=== PATIENT | female | born 1975 | race Two or more races ===

== ENCOUNTER → 2024-03-12 | Outpatient (CLI) | payer OTHER ==
[2024-03-12 06:47] LABS: Urine Bacteria FEW /hpf (None Seen); Urine Blood TRACE /uL (Negative); Urine Clarity Turbid (Clear); Urine Color Light-Yellow (Yellow); Urine Protein, UAD TRACE (Negative); Urine Specific Gravity 1.017 (1.001-1.035); Urine Urobilinogen Normal (Negative); Urine WBC 5 /hpf (0 - 5)
[2024-03-12 06:58] LABS: Basophils # (auto) 0.1 10 ^3/uL (0-0.2); Eosinophils # (auto) 0.4 10 ^3/uL (0-0.8); Lymphocytes # (auto) 1.5 10 ^3/uL (0.4-5.4); White Blood Cell 5.4 10^3/uL (4.4-10.8)
[2024-03-12 07:00] LABS: Basophils % (auto) 1.2 % (0.0-2.0); Eosinophils % (auto) 6.9 % (0.0-7.0); Hematocrit 22.4 % (36.0-46.0); Lymphocytes % (auto) 27.1 % (10.0-50.0); Mean Corpuscular Hemoglobin 18.6 pg (28.0-32.0); Mean Corpuscular Hgb Conc. 28.6 g/dL (32.0-36.0); Mean Corpuscular Volume 64.9 fL (80.0-100.0); Monocytes # (auto) 0.5 10 ^3/uL (0-1.3); Neutrophils % (auto) 55.8 % (37.0-80.0); Red Blood Cells 3.45 10^6/uL (4.0-5.20)
[2024-03-12 07:13] LABS: Alanine Aminotransferase 17 U/L (7-40); Albumin 4.4 g/dL (3.2-4.8); Alkaline Phosphatase 65 U/L (46-116); Anion Gap 5 (5-15); Aspartate Aminotransferase 14 U/L (13-40); BUN/Creatinine Ratio 10.3 (10.0-20.0); Blood Urea Nitrogen 8 mg/dL (9-23); Calcium 9.3 mg/dL (8.7-10.4); Carbon Dioxide 26 mmol/L (20-30); Chloride 108 mmol/L (98-107); Cholesterol 130 mg/dL (< 200); Glucose 100 mg/dL (74-106); HDL Cholesterol 42 mg/dL (40-59); LDL Cholesterol 77 mg/dL (< 100); Potassium 4.1 mmol/L (3.5-5.1); Sodium 139 mmol/L (136-145); Triglycerides 109 mg/dL (< 150)
[2024-03-12 07:14] LABS: Bilirubin, Total 0.4 mg/dL (0.2-1.0); Total Protein 6.6 g/dL (5.7-8.2)
[2024-03-12 07:15] LABS: Folate (Folic Acid) 10.49 ng/mL (>5.38)
[2024-03-12 09:27] LABS: Anisocytosis Slight; Hemoglobin 6.4 g/dL (12.2-16.2); Hypochromia Moderate; Platelet Estimate Adequate; Red Cell Distribution Width 21.1 % (11.8-14.3)
== END | disposition home or self-care (01) ==
LOC: LAB 06:10
PROVIDERS: ATTEND Family Medicine
DX: Z12.31 Encounter for screening mammogram for malignant neoplasm of breast (principal); Z12.11 Encounter for screening for malignant neoplasm of colon; Z12.4 Encounter for screening for malignant neoplasm of cervix; D22.9 Melanocytic nevi, unspecified; Z80.0 Family history of malignant neoplasm of digestive organs
CPT/HCPCS: 36415; 80053; 80061; 81001; 82306; 82607; 82746; 83036; 84403; 84443; 85025

== ENCOUNTER 2024-03-21 07:31 | Inpatient (IN) | payer OTHER ==
[~2024-03-21] VITALS: Ht 172.7 cm; Wt 110.4 kg
[2024-03-21] VITALS (7 sets, daily range): BP systolic 126–161; BP diastolic 67–103; PULSE 84–101; RESP 6–20; TEMP 98.3–98.5; O2SAT 99–100
[2024-03-21 08:05] LABS: Basophils % (auto) 0.6 % (0.0-2.0); Eosinophils # (auto) 0.4 10 ^3/uL (0-0.8); Lymphocytes # (auto) 1.6 10 ^3/uL (0.4-5.4); Monocytes # (auto) 0.7 10 ^3/uL (0-1.3); Monocytes % (auto) 8.6 % (0.0-12.0)
[2024-03-21 08:07] LABS: Basophils # (auto) 0 10 ^3/uL (0-0.2); Eosinophils % (auto) 4.4 % (0.0-7.0); Hematocrit 23.9 % (36.0-46.0); Lymphocytes % (auto) 19.3 % (10.0-50.0); Mean Corpuscular Hemoglobin 18.5 pg (28.0-32.0); Mean Corpuscular Hgb Conc. 27.9 g/dL (32.0-36.0); Mean Corpuscular Volume 66.2 fL (80.0-100.0); Neutrophils # (auto) 5.7 10 ^3/uL (1.6-8.6); Neutrophils % (auto) 67.1 % (37.0-80.0); Platelet Count (auto) 328 10^3/uL (140-450); Red Blood Cells 3.61 10^6/uL (4.0-5.20); White Blood Cell 8.5 10^3/uL (4.4-10.8)
[2024-03-21 08:13] LABS: Red Cell Distribution Width 21.3 % (11.8-14.3)
[2024-03-21 08:15] LABS: Hemoglobin 6.7 g/dL (12.2-16.2)
[2024-03-21 08:28] LABS: Anisocytosis Moderate
[2024-03-21 08:29] LABS: Hypochromia Marked; Platelet Estimate Adequate; Polychromasia Slight; Tear Drop Cells FEW
[2024-03-21 08:30] LABS: Alanine Aminotransferase 19 U/L (7-40); Albumin 4.5 g/dL (3.2-4.8); Alkaline Phosphatase 66 U/L (46-116); Anion Gap 8 (5-15); Aspartate Aminotransferase 12 U/L (13-40); Bilirubin, Total 0.5 mg/dL (0.2-1.0); Blood Urea Nitrogen 8 mg/dL (9-23); Calcium 9.3 mg/dL (8.7-10.4); Carbon Dioxide 22 mmol/L (20-30); Chloride 107 mmol/L (98-107); Glucose 108 mg/dL (74-106); Potassium 3.5 mmol/L (3.5-5.1); Sodium 137 mmol/L (136-145)
[2024-03-21 12:27] LABS: Urine Bacteria MOD /hpf (None Seen); Urine Blood Negative /uL (Negative); Urine Protein, UAD Negative (Negative); Urine Specific Gravity 1.006 (1.001-1.035); Urine Urobilinogen Normal (Negative); Urine WBC 4 /hpf (0 - 5)
[2024-03-21 12:28] LABS: Urine Clarity Hazy (Clear); Urine Color Light-Yellow (Yellow)
[2024-03-21] MEDS ORDERED: ONDANSETRON HCL 4 MG/2 ML VIAL IV PRN (13:45)
[2024-03-21] MEDS ORDERED: ACETAMINOPHEN 325 MG TAB PO PRN (13:45)
[2024-03-21] MEDS ORDERED: DOCUSATE SOD 100 MG CAP PO PRN (13:45)
[2024-03-21] MEDS ORDERED: HYDROcodone-ACET 5/325MG TAB PO PRN (13:45)
[2024-03-21] MEDS: SODIUM CHLOR 0.9% PF (SALINE LOCK) 10ML VIAL/SYR IV SCH (14:39)
== END 2024-03-21 17:59 | disposition left against medical advice (07) | DRG 812 ==
LOC: ER 07:31 → OVERFLOW 13:34
PROVIDERS: ADMIT Internal Medicine; ATTEND Internal Medicine
PROC: 30233N1 Transfusion of Nonautologous Red Blood Cells into Peripheral Vein, Percutaneous Approach (ICD-10-PCS; principal; 2024-03-21)
DX: D50.9 Iron deficiency anemia, unspecified (principal); K21.9 Gastro-esophageal reflux disease without esophagitis; N92.0 Excessive and frequent menstruation with regular cycle; Z53.29 Procedure and treatment not carried out because of patient's decision for other reasons; N95.9 Unspecified menopausal and perimenopausal disorder
CPT/HCPCS: 36415; 80053; 81001; 82728; 83540; 83550; 85025; 86850; 86900; 86901; 86922; 93005; 96374; 99291; G0378

== ENCOUNTER → 2024-03-24 | Outpatient (CLI) | payer OTHER ==
[2024-03-24 07:31] LABS: % Iron Saturation 6.8 % (15-50)
[2024-03-24 07:57] LABS: Basophils # (auto) 0.1 10 ^3/uL (0-0.2); Eosinophils # (auto) 0.4 10 ^3/uL (0-0.8); Eosinophils % (auto) 5.1 % (0.0-7.0); Hematocrit 25.3 % (36.0-46.0); Hemoglobin 7.2 g/dL (12.2-16.2); Lymphocytes # (auto) 1.8 10 ^3/uL (0.4-5.4); Mean Corpuscular Hemoglobin 19.3 pg (28.0-32.0); Mean Corpuscular Hgb Conc. 28.4 g/dL (32.0-36.0); Mean Corpuscular Volume 67.9 fL (80.0-100.0); Monocytes # (auto) 0.7 10 ^3/uL (0-1.3); Monocytes % (auto) 9.5 % (0.0-12.0); Neutrophils # (auto) 4.1 10 ^3/uL (1.6-8.6); Neutrophils % (auto) 58.4 % (37.0-80.0); Nucleated Red Blood Cells % 0.2 %; Platelet Count (auto) 278 10^3/uL (140-450); Red Blood Cells 3.72 10^6/uL (4.0-5.20)
[2024-03-24 07:58] LABS: Red Cell Distribution Width 21.9 % (11.8-14.3)
[2024-03-24 09:13] LABS: Platelet Estimate Adequate
[2024-03-24 09:15] LABS: Anisocytosis Slight; Hypochromia Marked; Ovalocytes MODERATE
== END | disposition home or self-care (01) ==
LOC: LAB 06:14
PROVIDERS: ATTEND Family Medicine
DX: R79.9 Abnormal finding of blood chemistry, unspecified (principal); D50.9 Iron deficiency anemia, unspecified
CPT/HCPCS: 36415; 83540; 83550; 85025

== ENCOUNTER → 2024-04-28 | Outpatient (CLI) | payer OTHER ==
[2024-04-28 16:20] LABS: Basophils # (auto) 0.1 10 ^3/uL (0-0.2); Hemoglobin 10.6 g/dL (12.2-16.2); Lymphocytes # (auto) 2.2 10 ^3/uL (0.4-5.4); Lymphocytes % (auto) 28.1 % (10.0-50.0); Mean Corpuscular Hgb Conc. 31.1 g/dL (32.0-36.0); Neutrophils # (auto) 4.5 10 ^3/uL (1.6-8.6); Red Cell Distribution Width 29.2 % (11.8-14.3); White Blood Cell 7.9 10^3/uL (4.4-10.8)
[2024-04-28 16:21] LABS: Eosinophils # (auto) 0.5 10 ^3/uL (0-0.8); Hematocrit 34.1 % (36.0-46.0); Mean Corpuscular Hemoglobin 24.2 pg (28.0-32.0); Mean Corpuscular Volume 77.8 fL (80.0-100.0); Monocytes # (auto) 0.6 10 ^3/uL (0-1.3); Monocytes % (auto) 8.1 % (0.0-12.0); Neutrophils % (auto) 56.8 % (37.0-80.0); Platelet Count (auto) 297 10^3/uL (140-450); Red Blood Cells 4.38 10^6/uL (4.0-5.20)
[2024-04-28 16:47] LABS: Follicle Stimulating Hormone 8.31 IU/L (SEE BELOW)
[2024-04-28 16:48] LABS: Leuteinizing Hormone 6.2 IU/L
[2024-04-28 17:49] LABS: Anisocytosis Slight; Hypochromia Slight; Platelet Estimate Adequate
[2024-04-29 08:06] LABS: Cancer Antigen (CA) 125 17.1 U/mL (0.0-38.1)
== END | disposition home or self-care (01) ==
LOC: LAB 15:53
PROVIDERS: ATTEND Obstetrics & Gynecology
DX: R10.2 Pelvic and perineal pain (principal); N93.9 Abnormal uterine and vaginal bleeding, unspecified; Z80.41 Family history of malignant neoplasm of ovary
CPT/HCPCS: 36415; 82670; 83001; 83002; 84403; 84443; 85025; 86304

== ENCOUNTER → 2024-05-06 | Outpatient (CLI) | payer OTHER | END | disposition home or self-care (01) | LOC: LAB 14:56 | PROVIDERS: ATTEND Radiology Diagnostic Radiology | DX: I10 Essential (primary) hypertension (principal) ==

== ENCOUNTER 2024-05-29 06:10 | Day surgery (SDC) | payer OTHER ==
[2024-05-26 10:20] LABS: Urine Bacteria FEW /hpf (None Seen); Urine Blood Negative /uL (Negative); Urine Clarity Clear (Clear); Urine Color Light-Yellow (Yellow); Urine Protein, UAD Negative (Negative); Urine Specific Gravity 1.009 (1.001-1.035); Urine Urobilinogen Normal (Negative); Urine WBC 3 /hpf (0 - 5)
[2024-05-26 10:22] LABS: Basophils # (auto) 0.1 10 ^3/uL (0-0.2); Basophils % (auto) 0.8 % (0.0-2.0); Eosinophils # (auto) 0.4 10 ^3/uL (0-0.8); Eosinophils % (auto) 5.1 % (0.0-7.0); Hematocrit 40.3 % (36.0-46.0); Hemoglobin 13.1 g/dL (12.2-16.2); Lymphocytes # (auto) 1.6 10 ^3/uL (0.4-5.4); Lymphocytes % (auto) 23.2 % (10.0-50.0); Mean Corpuscular Hemoglobin 27.7 pg (28.0-32.0); Mean Corpuscular Hgb Conc. 32.4 g/dL (32.0-36.0); Mean Corpuscular Volume 85.4 fL (80.0-100.0); Monocytes # (auto) 0.6 10 ^3/uL (0-1.3); Monocytes % (auto) 8.7 % (0.0-12.0); Neutrophils # (auto) 4.4 10 ^3/uL (1.6-8.6); Neutrophils % (auto) 62.2 % (37.0-80.0); Nucleated Red Blood Cells % 0.1 %; Platelet Count (auto) 249 10^3/uL (140-450); Red Blood Cells 4.72 10^6/uL (4.0-5.20); Red Cell Distribution Width 22.9 % (11.8-14.3); White Blood Cell 7.1 10^3/uL (4.4-10.8)
[2024-05-26 10:30] LABS: INR 1.01 (0.9-1.15); Partial Thromboplastin Time 25.9 SEC (24.5-34.5); Prothrombin Time 10.7 sec (9.3-11.8)
[2024-05-26 11:07] LABS: Alanine Aminotransferase 40 U/L (7-40); Albumin 4.6 g/dL (3.2-4.8); Alkaline Phosphatase 65 U/L (46-116); Anion Gap 8 (5-15); Aspartate Aminotransferase 32 U/L (13-40); BUN/Creatinine Ratio 9.6 (10.0-20.0); Blood Urea Nitrogen 8 mg/dL (9-23); Calcium 9.9 mg/dL (8.7-10.4); Carbon Dioxide 23 mmol/L (20-31); Chloride 109 mmol/L (98-107); Glucose 94 mg/dL (74-106); Potassium 3.9 mmol/L (3.5-5.1); Sodium 140 mmol/L (136-145)
[2024-05-26 11:08] LABS: Bilirubin, Total 0.3 mg/dL (0.2-1.0); Total Protein 7.2 g/dL (5.7-8.2)
[2024-05-26 11:11] LABS: Ovalocytes FEW; Tear Drop Cells FEW
[2024-05-26 11:12] LABS: Anisocytosis Slight; Platelet Estimate Adequate
--- NOTE | 2024-05-26 23:18 | DVHHP ---
ADMIT DATE: 05/29/2024 CHIEF COMPLAINT: Heavy menses. HISTORY OF PRESENT ILLNESS: The patient is a 48-year-old 0, para 0, admitted for D and C, hysteroscopy, and endometrial ablation. The patient has had history of heavy bleeding. Hemoglobin of 6 for which she received transfusion. She then had Depo-Provera which she did well on; however, was diagnosed with breast cancer. She is awaiting treatment evaluation and management of breast cancer. Meanwhile, decision was made to proceed with ablation in order to avoid having another hemorrhage and blood transfusion, while the patient is awaiting for management and treatment of breast cancer. PAST MEDICAL HISTORY: Blood transfusion. PAST SURGICAL HISTORY: None. SOCIAL HISTORY: None. FAMILY HISTORY: Positive for ovarian cancer. REVIEW OF SYSTEMS: Consistent with HPI. ALLERGIES: No known drug allergies. PHYSICAL EXAMINATION: VITAL SIGNS: Stable, afebrile. HEENT: Within normal limits. CARDIOVASCULAR: Regular rate and rhythm. LUNGS: Clear to auscultation. BREASTS: Symmetrical and right breast mass. ABDOMEN: Obese. PELVIC: External genitalia within normal limits. Vagina normal. Cervix grossly normal-appearing, stenotic. Uterus 14-week size. Adnexa nonpalpable. EXTREMITIES: No clubbing, cyanosis or edema. IMPRESSION: * Abnormal uterine bleeding, menorrhagia. * Anemia. * Morbid obesity. * Breast cancer. Current breast cancer per history. PLAN: D and C, hysteroscopy, endometrial ablation. Informed consent obtained. Risks, complication of surgery including infection, bleeding, perforation of uterus, risk of anesthesia, failure rate discussed with the patient. Options reviewed. All questions answered. The patient fully understands. She wishes to proceed with planned procedure. DO DAVID Kaminski TID: [id number] RECEIPT: [id number]
[~2024-05-29] VITALS: Ht 172.7 cm; Wt 64.9 kg
[~2024-05-29 06:10] MED LIST: FAMO20TA10 PO; FERR325T24 PO; TIRZ2.5I2 SC
[2024-05-29] MEDS ORDERED: ceFAZolin 2 GM/D5W100ml 100 ML IV ONE (07:51)
[2024-05-29] MEDS ORDERED: fentaNYL CITRATE 100 MCG/2 ML VL ONE (09:17)
[2024-05-29] MEDS ORDERED: PROPOFOL 10 MG/ML 20 ML IV ONE (09:18)
[2024-05-29] MEDS ORDERED: ONDANSETRON HCL 4 MG/2 ML VIAL ONE (10:27)
[2024-05-29] MEDS ORDERED: DexAMETHasone SOD PHOS 10MG/1ML VIAL INJ ONE (10:27)
[2024-05-29] MEDS ORDERED: MEPERIDINE HCL (50 MG/ML) 1 ML VIAL ONE ×2 (10:28→10:55)
[2024-05-29 11:07] VITALS: TEMP 98.7; O2SAT 100
[2024-05-29] MEDS ORDERED: ZOFR4T PO (11:09)
[2024-05-29] MEDS ORDERED: IBUP-1456 PO (11:09)
[2024-05-29] MEDS ORDERED: ACETAMINOPHEN IV 1000 MG/100ML (10MG/ML) IV PRN (11:15)
[2024-05-29] MEDS ORDERED: ONDANSETRON HCL 4 MG/2 ML VIAL IV ONE (11:15)
[2024-05-29] MEDS ORDERED: MEPERIDINE HCL (25 MG/ML) 1ML VIAL IV PRN (11:15)
[2024-05-29] MEDS ORDERED: HYDROmorphone HCL 2 MG/ML VL/or syr IV PRN (11:15)
[2024-05-29] MEDS ORDERED: LACTATED RINGER'S 1,000 ML IV SCH (11:15)
[2024-05-29] MEDS ORDERED: ONDANSETRON HCL 4 MG/2 ML VIAL IV PRN (11:15)
[2024-05-29 11:37] VITALS: BP 135/76; PULSE 108; RESP 17; O2SAT 98
--- NOTE | 2024-05-29 13:48 | DVHOP2 ---
Operative Report DATE OF OPERATION: 05/29/24 PREOPERATIVE DIAGNOSES: aub,fibroid uterus,morbid obesity POSTOPERATIVE DIAGNOSES: same SURGEON: Melissa Giron D.O. ANESTHESIOLOGIST: hilario TYPE OF ANESTHESIA : mac CONSENT: The patient was informed of the risks and benefits of the procedure. The patient was informed of the risks and benefits of the procedure. These include but are not limited to , complications of anesthesia, postoperative infection, incomplete relief of symptoms, recurrence of symptoms, damage to blood vessels, nerves and tendons, deep venous thrombosis, pulmonary embolism and possible need for repeat surgery in the future. FINDINGS: multiple fibroid in endometrium, enlarged uterus with multiple fibroids. Cervix, Bulbous, [place], and urethrovesical glands appeared normal. SPECIMEN: [facility] COMPLICATIONS: None. BLOOD PRODUCTS USED: None. PROCEDURES: Hysteroscopy and dilatation and curettage.failed ablation PROCEDURE IN DETAIL: The patient was taken to the operating room and placed in supine position. General anesthesia was performed without difficulty. She was then placed in Josh stirrups and prepped and draped in sterile fashion. Examination under anesthesia showed her to have a uterus, slightly enlarged and slightly irregular. Bulbous, [place], and urethrovesical glands appeared normal. A weighted speculum was placed posteriorly and right-angle Geovani anteriorly. Cervix was identified and grasped with a sharp tooth tenaculum. Uterus sounded her to approximately 12 cm. curetting of endometrium was done. the hysteroscope was placed within the uterus in which she was found to havemultiple fibroids in the endometrium.an attempt to do ablation failed due to fibroids in endometrium. No bleeding was noted. All instruments were removed. The patient was taken to recovery room in stable condition. CONDITION: The patient is stable ESTIMATED BLOOD LOSS: 50 mL ESTELAMELISSA KELLEY May 29, 2024 13:48
--- NOTE | 2024-05-29 13:57 | POSTOP ---
Post-Operative Note Post-Operative Note Preop Diagnosis aub Postop Diagnosis: AUB Operation performed d and c,hysteroscopy Specimen emc Anesthesia: Mac Anesthesiologist: nuygen Blood Loss(fluid mgmt) 50ml Surgeon Sandra Giron Implant na Complications & Mgmt none Date 05/29/24 Time 13:55 SANDRA GIRON DO May 29, 2024 13:57
--- NOTE | 2024-05-29 13:57 | DVHDS2 ---
Physician Discharge Progress N Final Diagnosis: AUB Operations or Procedures: Operations or Procedures d and c,hysteroscopy Condition on Discharge: Good Disposition: Home Discharge Instructions: Diet: Regular Activity: Light activity Follow Up/Referral: SAT 9AM Medications: ZOFRAN AND MOTRIN Follow Up Care: Specialist: sat Discharge Statement: "Patient was advised to return to the ER or call 911 if any headaches, dizziness, shortness of breath, chest pain, abdominal pain, bleeding, fevers, or worsening of medical condition. Patient was counseled about treatment plan, medications, possible side effects, patientverbalized understanding. All questions were answered to the best of my ability. This discharge took greater then 30 minutes in planning, reviewing documentation, counseling the patient, and discussing with other team members." SANDRA PALMER DO May 29, 2024 13:57
== END 2024-05-29 11:59 | disposition home or self-care (01) ==
LOC: SUR 06:10
PROVIDERS: ATTEND Obstetrics & Gynecology
DX: N93.9 Abnormal uterine and vaginal bleeding, unspecified (principal); D25.9 Leiomyoma of uterus, unspecified; E66.01 Morbid (severe) obesity due to excess calories; J45.909 Unspecified asthma, uncomplicated; K21.9 Gastro-esophageal reflux disease without esophagitis; Z86.2 Personal history of diseases of the blood and blood-forming organs and certain disorders involving the immune mechanism; Z83.3 Family history of diabetes mellitus; Z80.8 Family history of malignant neoplasm of other organs or systems; Z68.30 Body mass index [BMI] 30.0-30.9, adult
CPT/HCPCS: 36415; 58563; 80053; 81001; 81025; 84702; 85025; 85610; 85730; 86850; 86900; 86901; 88305; J1100; J2175; J2405; J2704; J3010